=== PATIENT | female | born 1985 | race Caucasian/White ===

== ENCOUNTER 2019-05-21 11:16 | Outpatient (CLI) | payer BC, SELFPAY ==
--- NOTE | 2019-05-21 | US_ITS ---
WS: [id number] TRANSABDOMINAL AND TRANSVAGINAL PELVIC ULTRASOUND HISTORY: MENORRHAGIA WITH IRREGULAR CYCLE COMPARISON: None available. Uterus: Uterus is anteverted measuring 12.7 x 7.4 x 5.7 cm. Poorly visualized myometrium. There are a reas of shadowing and mixed heterogeneity. Endocervical region is thickened. Variable echogenicity al kulwinder the cervical region. Endometrium: Incompletely visualized endometrium. Endometrium looks thickened at 3.1 cm. There may be a few cystic areas scattered within the endometrium. Right ovary: 3.5 x 4.5 x 3.1 cm; there is a cyst associated with the RIGHT ovary measuring 3.6 x 3.0 cm. Left ovary: 2.0 x 2.0 x 1.0 cm; small atrophic ovary. No free fluid. US/US pelvic complete* [id number] IMPRESSION: 1. Limited evaluation of the uterus and adnexa and endometrium. 2. Strongly recommend transvaginal pelvic imaging for definitive evaluation of the endometrium and also the cervix. The endocervical canal is heterogeneous w ith some shadowing. Fibroids or neoplasm. 3. Enlarged heterogeneous uterus.
== END 2019-05-21 11:17 | disposition home or self-care (01) ==
LOC: RADOUTREAD 14:16
PROVIDERS: Visit Provider Nurse Practitioner Family
DX: Z76.89 Persons encountering health services in other specified circumstances (principal)

== ENCOUNTER 2019-06-06 11:22 | Outpatient (CLI) | payer BC, SELFPAY ==
--- NOTE | 2019-06-06 | US_ITS ---
WS: [id number] ULTRASOUND PELVIS TECHNIQUE: Transvaginal. CLINICAL INFORMATION: ABNORMAL PELVIC ULTRASOUND LMP: May 17, 2019 : No. COMPARISON: None. FINDINGS: Technically difficult examination. Patient difficulty tolerating transvaginal probe pressur e. Enlarged and heterogeneous Uterus is difficult to entirely visualize. Multiple large cystic lesions a long the endometrium and uterine myometrium the largest measuring 1.5 CM. This is indeterminant and r ecommend CT abdomen pelvis for better anatomic detail. Orientation: Anteverted. Size: 8.0 x 5.2 x 4.2 cm Cervix: 2.6 CM. Incidental nabothian cysts. Endometrium: Not well seen Endometrium thickness: 9.4 mm. Adnexa: Neither ovary is visualized today. Free fluid: None. Other findings: None. US/US transvaginal [id number] IMPRESSION: 1. Technically limited examination. Patient difficulty tolerating transvaginal probe pressure 2. Enlarged heterogeneous uterus is incompletely visualized. Endometrium is no t well visualized. Recommend INFRASTRUCTURE DESIGN ENGINEER consultation and hysteroscopy. 3. Multiple lobulated cystic lesions involving the uterine myometrium incomple tely visualized measuring up to 1.[address] abdomen pelvis for better anatomic detail. 4. Endometrium measures 9.4 mm and appears heterogeneous. 5. Neither ovary is visualized today.
== END 2019-06-06 11:23 | disposition home or self-care (01) ==
LOC: RADOUTREAD 14:42
PROVIDERS: Visit Provider Nurse Practitioner Family
DX: Z01.89 Encounter for other specified special examinations (principal)

== ENCOUNTER → 2019-06-18 10:49 | Outpatient (BNVA) | payer BC, SELFPAY | PROVIDERS: Referring Provider Nurse Practitioner Family; Visit Provider Obstetrics & Gynecology Female Pelvic Medicine and Reconstructive Surgery | DX: N92.0 Excessive and frequent menstruation with regular cycle (principal); D64.9 Anemia, unspecified; N39.3 Stress incontinence (female) (male); R03.0 Elevated blood-pressure reading, without diagnosis of hypertension; E66.9 Obesity, unspecified | CPT/HCPCS: 81003 ==

== ENCOUNTER 2019-08-26 07:41 | Outpatient (CLI) | payer BC, SELFPAY ==
--- NOTE | 2019-08-26 07:58 | MR_ITS ---
WS: [id number] INDICATION: Menorrhagia TECHNIQUE: MRI of the pelvis without gadolinium enhancement FINDINGS: Comparison made to a prior ultrasound 2019 Enlarged retroverted uterus is again seen. Multiple lobulated T2 hyperintense cystic lesions involvin g the uterine myometrium. Endometrium measures 16 mm.Cystic myometrial lesions more prominent along t he ventral uterine myometrium measuring up to 1.5 CM. Associated narrowing of the endometrial canal. Gadolinium was not administered however these have the appearance of myometrial cysts and are more pr ominent along the ventral uterus along the presumed prior section scar. Multiple follicular ovaries bilaterally. Dominant left-sided follicle measuring up to 1.8 cm. Mild diffuse bladder wall thickening. MR/MR pelvis wo con* [id number] IMPRESSION: 1. Enlarged retroverted uterus 2. Numerous T2 hyperintense cystic-appearing lesions along the uterine myometr ium at the lower uterine segment presumably near the prior scar. Findi ngs most likely represent post myometrial cysts. Recommend SEPTIC TANK SERVICER consult ation. 3. No free fluid in the pelvis. 4. Endometrium measures 16 mm.
== END 2019-08-26 07:42 | disposition home or self-care (01) ==
LOC: RADWPI 07:47
PROVIDERS: PCP Nurse Practitioner Family; Visit Provider Obstetrics & Gynecology Female Pelvic Medicine and Reconstructive Surgery
DX: N92.0 Excessive and frequent menstruation with regular cycle (principal); N85.4 Malposition of uterus; N85.9 Noninflammatory disorder of uterus, unspecified
CPT/HCPCS: 72195

== ENCOUNTER 2020-12-24 15:46 | Emergency (ER) | payer BC, SELFPAY ==
[2020-12-24 16:07] VITALS: BP 179/130; PULSE 102; RESP 22; TEMP 36.8; O2SAT 100; BMI 41.1
--- NOTE | 2020-12-24 16:24 | W.ED.ABDPA2 ---
Documented by User: Luciano López MD 12/25/20 20:06 HPI - Abdominal Pain General: Chief Complaint: Abdominal Pain Stated Complaint: SEVERE INDIGESTION: SEEN TWICE AT PCP Time Seen by Provider: 12/24/20 16:24 History of Present Illness: HPI narrative: Ms. Burns is a 35-year-old lady without significant past medical history presents emergency department due to epigastric pain. Symptom onset was gradual approximately 2 weeks ago. She reports fullness, increased burping, and generalized discomfort in the epigastric region. She has seen her primary care provider twice, the first time she had a KUB performed which showed increased stool burden and was told to take laxatives which she has been taking with increased stool output and only minimal relief. She returned and had labs drawn which showed transaminitis which was reportedly mild. An ultrasound was performed which showed a normal gallbladder however she does have fatty liver. She returns today due to continued symptoms. She endorses worsening symptoms after eating however they also occur other times. The intensity when present is moderate to severe and often relieved by burping. She denies prior similar episodes in the past. No other significant changes in health, infectious symptoms, other locations of abdominal pain, specific exacerbating, or alleviating factors. Review of Systems General: Reports: 10 or more systems reviewed and unremarkable except in HPI and below PFSH ED PFSH: Family History Mother Hypertension Grandmother Breast cancer paternal Diabetes maternal Social History Smoking and tobacco status: never smoked Alcohol intake: never Other details last substance use: Denies drug use. Physical Exam Narrative: EXAM NARRATIVE: GENERAL/CONSTITUTIONAL -mildly uncomfortable appearing. No acute distress. Obese Eyes - PERRL, no conjunctival injection ENMT - Atraumatic external nose and ears. Moist mucous membranes NECK - supple. trachea midline CARDIOVASCULAR - regular rate and rhythm. Peripheral pulses 2+ and equal RESPIRATORY -clear to auscultation bilaterally. No retractions or accessory muscle use. ABDOMEN/GI -minimal tenderness in the epigastric region. Protuberant but not Nondistended. No tenderness to percussion or evidence of peritonitis MSK - Extremities without obvious deformity or tenderness to palpation SKIN - Warm, Dry NEURO - alert and appropriately oriented. strength and sensation intact. Moves all extremities equally. PSYCH - Appropriate mood and affect Course ED course: - Patient was seen and evaluated by me at bedside - Patient placed on cardiac monitors, IV access obtained - Initial evaluation notable for no acute distress, nontoxic appearance. Patient does appear somewhat uncomfortable and is mildly anxious. Based on reported outpatient management to this point and physical exam as well as clinical history I plan to start with symptom treatment as opposed to repeating evaluation. -First round of medications with only mild relief. Attempted additional medication. Patient care handed off to Dr. Arriaga pending reevaluation after this medication for resolution of symptoms or further required evaluation. Vital Signs: Vital signs: Vital Signs Temperature 98.3 F 12/24/20 21:39 Pulse Rate 96 12/24/20 21:39 Respiratory Rate 16 12/24/20 21:39 Blood Pressure 132/64 12/24/20 21:39 Pulse Oximetry 97 12/24/20 21:39 MDM - Abdominal Pain Lab Data: Labs: Lab Results 12/24/20 12/24/20 12/24/20 Range/Units 19:30 19:30 19:55 WBC 9.6 (4.0-10.0) 10^3/ uL RBC 6.10 H (4.1-5.3) 10^6/u L Hgb 14.0 (11.5-15.3) g/dL Hct 43.7 (37.0-47.0) % MCV 71.6 L (81-99) fl MCH 23.0 L (28.0-34.0) pg MCHC 32.0 (30.0-36.0) g/dL RDW 19.0 H (12.1-15.1) % Plt Count 502 H (130-400) 10^3/c mm MPV 10.1 (7.4-10.4) fL Neut % (Auto) 69.5 % Lymph % (Auto) 22.0 % [place] % (Auto) 6.7 % Eos % (Auto) 1.1 % Baso % (Auto) 0.5 % Neut # (Auto) 6.67 (1.8-7.7) 10^3/u L Lymph # (Auto) 2.1 (0.8-4.8) 10^3/u L [place] # (Auto) 0.6 (0.2-0.9) 10^3/u L Eos # (Auto) 0.1 (0.0-0.8) 10^3/u L Baso # (Auto) 0.1 (0.0-0.1) 10^3/u L Nucleated RBC % (a uto) 0 % Nucleated RBCs # 0.0 /100WBC Sodium 137 (136-145) mmol/L Potassium 4.1 (3.5-5.1) mmol/L Chloride 100 (98-107) mmol/L Carbon Dioxide 22 (22-29) mmol/L Anion Gap 19.1 H (5-19) BUN 11 (6-20) mg/dL Creatinine 0.4 L (0.5-0.9) mg/dL GFR Calculation 181.6 H (90-130) mL/min Glucose 82 (65-115) mg/dL Calculated Osmolal ity 282 L (285-295) mOsm/k g Calcium 9.7 (8.5-10.5) mg/dL Total Bilirubin 0.3 (0.15-1.2) mg/dL AST 47 H (0-32) U/L ALT 56 H (0-33) U/L Alkaline Phosphata se 61 (35-105) IU/L Total Protein 7.7 (6.6-8.7) g/dL Albumin 4.8 (3.5-5.2) g/dL Globulin 2.9 (1.3-4.6) g/dL Lipase 37 (13-60) U/L HCG, Qual Negative (Negative) Urine Color (Yellow) Urine Appearance (CLEAR) Urine pH (5-7) Ur Specific Gravit y (1.005-1.030) Urine Protein (Negative) Urine Glucose (UA) (Normal) Urine Ketones (Negative) Urine Blood (Negative) Urine Nitrate (Negative) Urine Bilirubin (Negative) Urine Urobilinogen (Negative) mg/dL Ur Leukocyte Meche ase (Negative) 12/24/20 Range/Units 19:55 WBC (4.0-10.0) 10^3/ uL RBC (4.1-5.3) 10^6/u L Hgb (11.5-15.3) g/dL Hct (37.0-47.0) % MCV (81-99) fl MCH (28.0-34.0) pg MCHC (30.0-36.0) g/dL RDW (12.1-15.1) % Plt Count (130-400) 10^3/c mm MPV (7.4-10.4) fL Neut % (Auto) % Lymph % (Auto) % [place] % (Auto) % Eos % (Auto) % Baso % (Auto) % Neut # (Auto) (1.8-7.7) 10^3/u L Lymph # (Auto) (0.8-4.8) 10^3/u L [place] # (Auto) (0.2-0.9) 10^3/u L Eos # (Auto) (0.0-0.8) 10^3/u L Baso # (Auto) (0.0-0.1) 10^3/u L Nucleated RBC % (a uto) % Nucleated RBCs # /100WBC Sodium (136-145) mmol/L Potassium (3.5-5.1) mmol/L Chloride (98-107) mmol/L Carbon Dioxide (22-29) mmol/L Anion Gap (5-19) BUN (6-20) mg/dL Creatinine (0.5-0.9) mg/dL GFR Calculation (90-130) mL/min Glucose (65-115) mg/dL Calculated Osmolal ity (285-295) mOsm/k g Calcium (8.5-10.5) mg/dL Total Bilirubin (0.15-1.2) mg/dL AST (0-32) U/L ALT (0-33) U/L Alkaline Phosphata se (35-105) IU/L Total Protein (6.6-8.7) g/dL Albumin (3.5-5.2) g/dL Globulin (1.3-4.6) g/dL Lipase (13-60) U/L HCG, Qual (Negative) Urine Color Yellow (Yellow) Urine Appearance Clear (CLEAR) Urine pH 5 (5-7) Ur Specific Gravit y 1.020 (1.005-1.030) Urine Protein Neg (Negative) Urine Glucose (UA) Norm (Normal) Urine Ketones 1+ H (Negative) Urine Blood Neg (Negative) Urine Nitrate Negative (Negative) Urine Bilirubin Neg (Negative) Urine Urobilinogen Norm (Negative) mg/dL Ur Leukocyte Meche ase Negative (Negative) Discharge Plan Discharge Patient Disposition: Home Clinical Impression: Epigastric abdominal pain, Abdominal fullness Condition: Stable Prescriptions: New dicyclomine 20 mg tablet 20 mg PO TID Qty: 20 RF: 0 No Action multivitamin Tablet 1 tab PO DAILY RF: 0 omeprazole 20 mg capsule,delayed release(DR/EC) 20 mg PO DAILY RF: 0 Discharge Orders: Discharge ED (Routine); Ordered 12/24/20 Ordered By: Tate Arriaga Referrals: Mary Ann Madrid FNP [Primary Care Provider] - 1-3 days Discharge Diet: Usual diet Discharge Activity: Resume usual activity Patient Instructions: Abdominal Pain (ED) Activity Restrictions/Additional Instructions: Thank you for visiting the ED. You were seen and evaluated for abdominal discomfort. The exact cause of your symptoms in unclear however your outpatient workup appears to be appropriate so far and base on the findings you reported no inpatient evaluation is needed. Please continue to follow recommendations from your PCP and medications. Please return for anything that you are concerned about and feel needs ED evaluation. Coding Level of Care Code ED Power Generation Engineer for Chg Fwd Documented by User: Tate Arriaga MD 12/24/20 21:36 HPI - Abdominal Pain General: Chief Complaint: Abdominal Pain Stated Complaint: SEVERE INDIGESTION: SEEN TWICE AT PCP Time Seen by Provider: 12/24/20 16:24 [facility] ED PFSH: Family History Mother Hypertension Grandmother Breast cancer paternal Diabetes maternal Social History Smoking and tobacco status: never smoked Alcohol intake: never Other details last substance use: Denies drug use. Course Vital Signs: Vital signs: Vital Signs Temperature 98.3 F 12/24/20 21:39 Pulse Rate 96 12/24/20 21:39 Respiratory Rate 16 09/16/21 21:39 Blood Pressure 132/64 12/24/20 21:39 Pulse Oximetry 97 12/24/20 21:39 MDM - Abdominal Pain MDM Narrative: Medical decision making narrative: Here with abdominal pain is been ongoing. Her CT scan and blood work are all normal. She is to follow-up with her PCP return if worsening. Lab Data: Labs: Lab Results 12/24/20 12/24/20 12/24/20 Range/Units 19:30 19:30 19:55 WBC 9.6 (4.0-10.0) 10^3/ uL RBC 6.10 H (4.1-5.3) 10^6/u L Hgb 14.0 (11.5-15.3) g/dL Hct 43.7 (37.0-47.0) % MCV 71.6 L (81-99) fl MCH 23.0 L (28.0-34.0) pg MCHC 32.0 (30.0-36.0) g/dL RDW 19.0 H (12.1-15.1) % Plt Count 502 H (130-400) 10^3/c mm MPV 10.1 (7.4-10.4) fL Neut % (Auto) 69.5 % Lymph % (Auto) 22.0 % [place] % (Auto) 6.7 % Eos % (Auto) 1.1 % Baso % (Auto) 0.5 % Neut # (Auto) 6.67 (1.8-7.7) 10^3/u L Lymph # (Auto) 2.1 (0.8-4.8) 10^3/u L [place] # (Auto) 0.6 (0.2-0.9) 10^3/u L Eos # (Auto) 0.1 (0.0-0.8) 10^3/u L Baso # (Auto) 0.1 (0.0-0.1) 10^3/u L Nucleated RBC % (a uto) 0 % Nucleated RBCs # 0.0 /100WBC Sodium 137 (136-145) mmol/L Potassium 4.1 (3.5-5.1) mmol/L Chloride 100 (98-107) mmol/L Carbon Dioxide 22 (22-29) mmol/L Anion Gap 19.1 H (5-19) BUN 11 (6-20) mg/dL Creatinine 0.4 L (0.5-0.9) mg/dL GFR Calculation 181.6 H (90-130) mL/min Glucose 82 (65-115) mg/dL Calculated Osmolal ity 282 L (285-295) mOsm/k g Calcium 9.7 (8.5-10.5) mg/dL Total Bilirubin 0.3 (0.15-1.2) mg/dL AST 47 H (0-32) U/L ALT 56 H (0-33) U/L Alkaline Phosphata se 61 (35-105) IU/L Total Protein 7.7 (6.6-8.7) g/dL Albumin 4.8 (3.5-5.2) g/dL Globulin 2.9 (1.3-4.6) g/dL Lipase 37 (13-60) U/L HCG, Qual Negative (Negative) Urine Color (Yellow) Urine Appearance (CLEAR) Urine pH (5-7) Ur Specific Gravit y (1.005-1.030) Urine Protein (Negative) Urine Glucose (UA) (Normal) Urine Ketones (Negative) Urine Blood (Negative) Urine Nitrate (Negative) Urine Bilirubin (Negative) Urine Urobilinogen (Negative) mg/dL Ur Leukocyte Meche ase (Negative) 12/24/20 Range/Units 19:55 WBC (4.0-10.0) 10^3/ uL RBC (4.1-5.3) 10^6/u L Hgb (11.5-15.3) g/dL Hct (37.0-47.0) % MCV (81-99) fl MCH (28.0-34.0) pg MCHC (30.0-36.0) g/dL RDW (12.1-15.1) % Plt Count (130-400) 10^3/c mm MPV (7.4-10.4) fL Neut % (Auto) % Lymph % (Auto) % [place] % (Auto) % Eos % (Auto) % Baso % (Auto) % Neut # (Auto) (1.8-7.7) 10^3/u L Lymph # (Auto) (0.8-4.8) 10^3/u L [place] # (Auto) (0.2-0.9) 10^3/u L Eos # (Auto) (0.0-0.8) 10^3/u L Baso # (Auto) (0.0-0.1) 10^3/u L Nucleated RBC % (a uto) % Nucleated RBCs # /100WBC Sodium (136-145) mmol/L Potassium (3.5-5.1) mmol/L Chloride (98-107) mmol/L Carbon Dioxide (22-29) mmol/L Anion Gap (5-19) BUN (6-20) mg/dL Creatinine (0.5-0.9) mg/dL GFR Calculation (90-130) mL/min Glucose (65-115) mg/dL Calculated Osmolal ity (285-295) mOsm/k g Calcium (8.5-10.5) mg/dL Total Bilirubin (0.15-1.2) mg/dL AST (0-32) U/L ALT (0-33) U/L Alkaline Phosphata se (35-105) IU/L Total Protein (6.6-8.7) g/dL Albumin (3.5-5.2) g/dL Globulin (1.3-4.6) g/dL Lipase (13-60) U/L HCG, Qual (Negative) Urine Color Yellow (Yellow) Urine Appearance Clear (CLEAR) Urine pH 5 (5-7) Ur Specific Gravit y 1.020 (1.005-1.030) Urine Protein Neg (Negative) Urine Glucose (UA) Norm (Normal) Urine Ketones 1+ H (Negative) Urine Blood Neg (Negative) Urine Nitrate Negative (Negative) Urine Bilirubin Neg (Negative) Urine Urobilinogen Norm (Negative) mg/dL Ur Leukocyte Meche ase Negative (Negative) Imaging Data ^: CT Abd/Pel: Attestation: I personally reviewed and interpreted this imaging study as follows: Radiologist's impression: [address] [address] [address] Scan Report Signed Patient: Afia Burns Unit #: [id number] : 1985 Age/Sex: 35 / F ADM Date: 12/24/20 Loc: ER Room/Bed: Attending Dr: Ordering Provider/Ordering MD: Tate Arriaga MD Date of Service: 12/24/20 Procedure(s): CT abdomen pelvis w con* [id number] Accession Number(s): [id number] Report Number: [id number] PROCEDURE INFORMATION: Exam: CT Abdomen And Pelvis With Contrast Exam date and time: 12/24/2020 7:19 PM Age: 35 years old Clinical indication: Bloating and other: Loss of appetite; Abdominal pain; Prior surgery; Surgery type: ; Additional info: Abd pain TECHNIQUE: Imaging protocol: Computed tomography of the abdomen and pelvis with contrast. Total images: 261 Radiation optimization: All CT scans at this facility use at least one of these dose optimization techniques: automated exposure control; mA and/or kV adjustment per patient size (includes targeted exams where dose is matched to clinical indication); or iterative reconstruction. Contrast material: OMNI 300; Contrast volume: 95 ml; Contrast route: INTRAVENOUS (IV); COMPARISON: US pelvic complete* [id number] 05/21/2019 11:16 AM RADIATION DOSE METRICS: Total DLP (mGy-cm): 1875.21 FINDINGS: Lungs: Limited assessment of the lung bases fails to reveal evidence for active cardiopulmonary process. Liver: Advanced diffuse fatty infiltration of the liver with marked hepatomegaly. No visible hepatic mass or cystic structure. Gallbladder and bile ducts: Partial hepatization of the gallbladder. No visible cholelithiasis. No visible intra or extrahepatic biliary ectasia. Pancreas: Pancreas is unremarkable. No visible pancreatic ductal ectasia. Spleen: Splenomegaly. Adrenal glands: Adrenal glands unremarkable. Kidneys and ureters: No hydronephrosis or perinephric fluid. No visible nephrolithiasis. Stomach and bowel: Assessment of the hollow viscus fails to reveal evidence of active or acute pathology. Nonobstructed bowel pattern. No visible acute diverticulitis. No visible adynamic or reactive ileus. Appendix: The appendix is visualized and appears noninflamed. Intraperitoneal space: No visible evidence of mesenteric lymphadenitis or active mesenteritis/panniculitis. No visible pneumoperitoneum or intraperitoneal ascites. Vasculature: Portal vein patent. The abdominal aorta is nonaneurysmal. Lymph nodes: No current visible evidence of active mesenteric or retroperitoneal lymphadenopathy. Urinary bladder: Urinary bladder decompressed but without gross filling defect. Reproductive: Numerous nabothian cysts. Potential small uterine leiomyomata. Bones/joints: No visible active or acute osseous pathology. Bones/joints: Unremarkable. No acute fracture. Soft tissues: Obesity. CT/CT abdomen pelvis w con* [id number] IMPRESSION: 1. Currently no visible evidence for acute abdominal or pelvic pathologic process. 2. Advanced diffuse fatty infiltration of the liver with marked hepatomegaly. 3. Splenomegaly. Radiation Dose CTDIVOL = (mGy): DLP = 1875.21 (mGy-cm) Dictated By: Artemio Rivas Signed By: Artemio Rivas Signed Date/Time: 12/24/202124 DD/ 23 Discharge Plan Discharge Patient Disposition: Home Clinical Impression: Epigastric abdominal pain, Abdominal fullness Condition: Stable Prescriptions: New dicyclomine 20 mg tablet 20 mg PO TID Qty: 20 RF: 0 No Action multivitamin Tablet 1 tab PO DAILY RF: 0 omeprazole 20 mg capsule,delayed release(DR/EC) 20 mg PO DAILY RF: 0 Discharge Orders: Discharge ED (Routine); Ordered 12/24/20 Ordered By: Tate Arriaga Referrals: Mary Ann Madrid FNP [Primary Care Provider] - 1-3 days Discharge Diet: Usual diet Discharge Activity: Resume usual activity Patient Instructions: Abdominal Pain (ED) Activity Restrictions/Additional Instructions: Thank you for visiting the ED. You were seen and evaluated for abdominal discomfort. The exact cause of your symptoms in unclear however your outpatient workup appears to be appropriate so far and base on the findings you reported no inpatient evaluation is needed. Please continue to follow recommendations from your PCP and medications. Please return for anything that you are concerned about and feel needs ED evaluation. Coding Level of Care Code ED Power Generation Engineer for Staci Mcmahon
[2020-12-24 16:56] VITALS: BP 205/165; PULSE 99; O2SAT 98
[2020-12-24] MEDS: simethicone 80 mg Chew PO (17:25)
[2020-12-24] MEDS: lidocaine 2% viscous 15 ML, aluminum-mag hydrox-simethicon 30 ML, sucralfate oral liq 1 GM PO (17:25)
[2020-12-24 17:30] VITALS: BP 184/115; PULSE 106; O2SAT 99
[2020-12-24] MEDS: metoclopramide 10 mg Tablet PO (18:48)
[2020-12-24 18:51] VITALS: BP 211/124; PULSE 96; O2SAT 95
--- NOTE | 2020-12-24 19:19 | CTR_ITS ---
PROCEDURE INFORMATION: Exam: CT Abdomen And Pelvis With Contrast Exam date and time: 12/24/2020 7:19 PM Age: 35 years old Clinical indication: Bloating and other: Loss of appetite; Abdominal pain; Prior surgery; Surgery type: ; Additional info: Abd pain TECHNIQUE: Imaging protocol: Computed tomography of the abdomen and pelvis with contrast. Total images: 261 Radiation optimization: All CT scans at this facility use at least one of these dose optimization techniques: automated exposure control; mA and/or kV adjustment per patient size (includes targeted exams where dose is matched to clinical indication); or iterative reconstruction. Contrast material: OMNI 300; Contrast volume: 95 ml; Contrast route: INTRAVENOUS (IV); COMPARISON: US pelvic complete* [id number] 05/21/2019 11:16 AM RADIATION DOSE METRICS: Total DLP (mGy-cm): 1875.21 FINDINGS: Lungs: Limited assessment of the lung bases fails to reveal evidence for active cardiopulmonary process. Liver: Advanced diffuse fatty infiltration of the liver with marked hepatomegaly. No visible hepatic mass or cystic structure. Gallbladder and bile ducts: Partial hepatization of the gallbladder. No visible cholelithiasis. No visible intra or extrahepatic biliary ectasia. Pancreas: Pancreas is unremarkable. No visible pancreatic ductal ectasia. Spleen: Splenomegaly. Adrenal glands: Adrenal glands unremarkable. Kidneys and ureters: No hydronephrosis or perinephric fluid. No visible nephrolithiasis. Stomach and bowel: Assessment of the hollow viscus fails to reveal evidence of active or acute pathology. Nonobstructed bowel pattern. No visible acute diverticulitis. No visible adynamic or reactive ileus. Appendix: The appendix is visualized and appears noninflamed. Intraperitoneal space: No visible evidence of mesenteric lymphadenitis or active mesenteritis/panniculitis. No visible pneumoperitoneum or intraperitoneal ascites. Vasculature: Portal vein patent. The abdominal aorta is nonaneurysmal. Lymph nodes: No current visible evidence of active mesenteric or retroperitoneal lymphadenopathy. Urinary bladder: Urinary bladder decompressed but without gross filling defect. Reproductive: Numerous nabothian cysts. Potential small uterine leiomyomata. Bones/joints: No visible active or acute osseous pathology. Bones/joints: Unremarkable. No acute fracture. Soft tissues: Obesity. CT/CT abdomen pelvis w con* [id number] IMPRESSION: 1. Currently no visible evidence for acute abdominal or pelvic pathologic process. 2. Advanced diffuse fatty infiltration of the liver with marked hepatomegaly. 3. Splenomegaly. Radiation Dose CTDIVOL = (mGy): DLP = 1875.21 (mGy-cm)
[2020-12-24 19:49] LABS: Basophils # 0.1 10^3/uL (0.0-0.1); Basophils % 0.5 %; Eosinophils # 0.1 10^3/uL (0.0-0.8); Eosinophils % 1.1 %; Hematocrit 43.7 % (37.0-47.0); Lymphocytes # 2.1 10^3/uL (0.8-4.8); Mean Corpuscular Volume 71.6 fl (81-99); Mean Platelet Volume 10.1 fL (7.4-10.4); Monocytes # 0.6 10^3/uL (0.2-0.9); Monocytes % 6.7 %; Neutrophils # 6.67 10^3/uL (1.8-7.7); Neutrophils % 69.5 %; Nucleated Red Blood Cells % 0 %; Platelet Count 502 10^3/cmm (130-400); White Blood Count 9.6 10^3/uL (4.0-10.0)
[2020-12-24] MEDS: diphenhydrAMINE 50 mg/mL SDV 1mL IVP (19:55)
[2020-12-24 20:08] LABS: Add Urine Microscopic? NO; Charge for UA Resulting for Rev
[2020-12-24 20:10] LABS: HCG Qualitative Urine. Negative (Negative)
[2020-12-24 20:11] LABS: Bilirubin Urine Neg (Negative); Blood Urine Neg (Negative); Glucose Urine UA Norm (Normal); Ketones Urine 1+ (Negative); Leukocyte Esterase Urine Negative (Negative); Nitrate Urine Negative (Negative); Protein Urine Neg (Negative); Urine Appearance Clear (CLEAR); Urine Color Yellow (Yellow); Urobilinogen Urine Norm (Negative); pH Urine 5 (5-7)
[2020-12-24 20:11] LABS: Alanine Aminotransferase 56 U/L (0-33); Albumin Level 4.8 g/dL (3.5-5.2); Alkaline Phosphatase 61 IU/L (35-105); Anion Gap 19.1 (5-19); Aspartate Amino Transferase 47 U/L (0-32); Blood Urea Nitrogen 11 mg/dL (6-20); Calcium 9.7 mg/dL (8.5-10.5); Carbon Dioxide 22 mmol/L (22-29); Chloride 100 mmol/L (98-107); Globulin 2.9 g/dL (1.3-4.6); Glomerular Filtration Rate 181.6 mL/min (90-130); Glucose 82 mg/dL (65-115); Lipase 37 U/L (13-60); Osmolality Calculated 282 mOsm/kg (285-295); Potassium 4.1 mmol/L (3.5-5.1); Sodium 137 mmol/L (136-145); Total Bilirubin 0.3 mg/dL (0.15-1.2); Total Protein 7.7 g/dL (6.6-8.7)
[2020-12-24] MEDS: iohexol 300 mg/mL 100 mL Btl IV (20:24)
[2020-12-24 21:39] VITALS: BP 132/64; PULSE 96; RESP 16; TEMP 36.8; O2SAT 97
== END 2020-12-24 21:41 | disposition home or self-care (01) ==
PROVIDERS: Emergency Medicine; Emergency Provider Emergency Medicine; PCP Nurse Practitioner Family
DX: R10.13 Epigastric pain (principal)
CPT/HCPCS: 74177; 80053; 81003; 81025; 83690; 85025; 96374; 99284; J1200; J8597; Q9967

== ENCOUNTER → 2022-06-07 09:52 | Outpatient (BNVA) | payer BC, SELFPAY | PROVIDERS: PCP Family Medicine; Visit Provider Family Medicine | DX: E66.9 Obesity, unspecified (principal); I10 Essential (primary) hypertension; K76.0 Fatty (change of) liver, not elsewhere classified; R79.89 Other specified abnormal findings of blood chemistry; R01.1 Cardiac murmur, unspecified; K21.9 Gastro-esophageal reflux disease without esophagitis | CPT/HCPCS: 80053; 80061; 82728; 83036; 83550; 84443; 84466; 85025 ==

== ENCOUNTER → 2022-06-15 14:26 | Outpatient (BNVA) | payer BC, SELFPAY | PROVIDERS: PCP Family Medicine; Visit Provider Family Medicine | DX: D50.9 Iron deficiency anemia, unspecified (principal); N83.8 Other noninflammatory disorders of ovary, fallopian tube and broad ligament; I10 Essential (primary) hypertension | CPT/HCPCS: 81003 ==